=== PATIENT | female | born 1975 | race Hispanic/Latino ===

== ENCOUNTER 2017-02-18 14:50 | Emergency (ER) | payer SELFPAY ==
[~2017-02-18] VITALS: Ht 165.1 cm; Wt 54.4 kg
[~2017-02-18 14:50] MED LIST: DILAUDID2 M1 PO; IMITREX50 M1 PO; PREDNISONE 20MG20 MG PO; PROAIR HFA8.5 GM INH; TESSALON PERLE100 MG PO; VICODIN5-300 PO; [UNRECOGNIZED DRUG - OTHER] PO
[2017-02-18 15:22] VITALS: BP 115/82
--- NOTE | 2017-02-18 17:49 | ED NECK/BACK PAIN COMPLAINT ---
History of Present Illness General Chief Complaint: Low Back Pain/Injury Stated Complaint: LOW BACK PAIN Source: patient Exam Limitations: no limitations Vital Signs & Intake/Output Vital Signs & Intake/Output Vital Signs Date Time Temp Pulse Resp B/P B/P Pulse O2 O2 Flow FiO2 Mean Ox Delivery Rate 02/18 1522 97.7 82 16 115/82 99 Room Air Allergies Coded Allergies: NO KNOWN ALLERGIES (05/25/12) Reconcile Medications Albuterol Sulfate (Proair Hfa) 90 MCG HFA.AER.AD 2 PUF INH Q4-6 PRN PRN ASTHMA (Reported) [CALM RESPONSE] CAPSULE HERBAL SUPPLEMENT (Reported) Hydromorphone HCl (Dilaudid) 2 MG TABLET 1 TAB PO 4XDP PRN PAIN Sumatriptan Succinate (Imitrex) 50 MG TABLET 1 TAB PO AD MIGRAINES (Reported) Triage Note: PT STATES SHE HAS SCIATIC PAIN LEFT LOWER EXT. PT REPORTS SHE COULD NOT SLEEP LAST NIGHT THE PAIN WAS SO BAD. PT HAS BEEN TAKING LIDODERM PATCH, NARPOXYN AND FLEXERIL WITH LITTLE RELIEF. : No Patient currently breastfeeds: No Past History Travel History Traveled to [place] past 21 day No Medical History Respiratory: asthma Renal: KIDNEY STONES Musculoskeletal: SCIATIC PAIN Surgical History Surgical History: non-contributory Psychosocial History What is your primary language Maltese Tobacco Use: Current Daily Use Daily Tobacco Use Amount/Type: => 5 Cigarettes daily ETOH Use: occasional use Illicit Drug Use: denies illicit drug use Departure Departure Condition: Stable Referrals: JAVAN DE JESUS APRN (PCP/Family) Departure Forms: Customer Survey General Discharge Information
== END 2017-02-18 17:50 | disposition admitted as inpatient to this hospital (09) ==
LOC: ERH 14:50
DX: M54.42 Lumbago with sciatica, left side (principal)
CPT/HCPCS: 99281